=== PATIENT | female | born 1955 | race Caucasian/White ===

== ENCOUNTER → 2017-05-28 | Outpatient (CLI) | payer OTHER | LOC: KOH-I 14:43 | DX: M79.605 Pain in left leg (principal) | CPT/HCPCS: 93971 ==

== ENCOUNTER 2022-02-14 13:13 | Emergency (ER) | payer OTHER ==
[~2022-02-14 13:13] MED LIST: LEVAQUIN750 MG PO; ZOFRAN4 MG PO
[2022-02-14 14:56] LABS: HEMOGLOBIN 13.9 gm/dl (12.3-15.3); RED BLOOD COUNT 4.55 M/UL (4.00-5.10); WHITE BLOOD COUNT 7.7 K/UL (4.5-11.0)
[2022-02-14 15:16] LABS: BUN/CREATININE RATIO 19 (0-10)
== END 2022-02-14 17:50 | disposition home or self-care (01) ==
LOC: ER1 13:13
PROVIDERS: Emergency Medicine
DX: M51.26 Other intervertebral disc displacement, lumbar region (principal); M06.9 Rheumatoid arthritis, unspecified
CPT/HCPCS: 72131; 80053; 81001; 85025; 96372; 96374; 96375; 99283; J1100; J2270; J2405